=== PATIENT | male | born 1945 | race Caucasian/White ===

== ENCOUNTER 2017-09-13 15:21 | Inpatient (IN) | payer MEDICARE, OTHER ==
[~2017-09-13] VITALS: Ht 175.3 cm; Wt 83.5 kg
--- NOTE | 2017-09-13 15:40 | NUR ---
at bedside assessing patient.
[2017-09-13] MEDS ORDERED: DOCU100C36 PO (15:43)
[2017-09-13] MEDS ORDERED: ACET325T53 PO (15:43)
[2017-09-13] MEDS ORDERED: METF-495 PO (15:43)
[2017-09-13] MEDS ORDERED: ALLO100T PO (15:43)
[2017-09-13] MEDS ORDERED: ATOR80TA PO (15:43)
[2017-09-13] MEDS ORDERED: CHOL10002 PO (15:43)
[2017-09-13] MEDS ORDERED: CARB15DR56 OP (15:43)
[2017-09-13] MEDS ORDERED: HYDR-3972 PO (15:43)
[2017-09-13] MEDS ORDERED: DOXA2TAB PO (15:43)
[2017-09-13] MEDS ORDERED: ASPI-605 PO (15:43)
[2017-09-13] MEDS ORDERED: METO25TA6 PO (15:43)
[2017-09-13] MEDS ORDERED: ALEN70TA45 PO (15:43)
[2017-09-13] MEDS ORDERED: DUTA0.5C15 PO (15:43)
[2017-09-13] MEDS ORDERED: LOSA25TA13 PO (15:43)
[2017-09-13] MEDS ORDERED: CLOP75TA15 PO (15:43)
--- NOTE | 2017-09-13 16:05 | NUR ---
pt down for Ct.
[2017-09-13 16:09] LABS: BASOPHILS % (AUTO) 0.3 % (0.0-2.0); EOSINOPHILS # (AUTO) 0.1 K/uL (0.0-0.7); EOSINOPHILS % (AUTO) 1.4 % (0.0-7.0); HEMATOCRIT 37.2 % (36.7-47.1); HEMOGLOBIN 12.5 g/dL (12.5-16.3); LYMPHOCYTES # (AUTO) 0.7 K/uL (20.0-40.0); LYMPHOCYTES % (AUTO) 12.1 % (20.5-51.5); MEAN CORPUSCULAR HEMOGLOBIN 28.6 uug (23.8-33.4); MEAN CORPUSCULAR HGB CONC 34 g/dL (32.5-36.3); MONOCYTES # (AUTO) 0.6 K/uL (2.0-10.0); MONOCYTES % (AUTO) 11.8 % (0.0-11.0); NEUTROPHILS # (AUTO) 4.1 K/uL (1.8-8.9); NEUTROPHILS % (AUTO) 74.4 % (38.5-71.5); PLATELET COUNT (AUTO) 108 K/uL (152-348); RED BLOOD CELL COUNT(AUTO) 4.37 MIL/uL (4.06-5.63); WHITE BLOOD COUNT (AUTO) 5.5 K/uL (3.6-10.2)
[2017-09-13 16:14] LABS: CARBON DIOXIDE 29 mmol/L (21-32); CHLORIDE 100 mmol/L (98-107); CREATININE 1.4 mg/dL (0.6-1.3); GLUCOSE 153 mg/dL (74-106); POTASSIUM 3.9 mmol/L (3.5-5.1); UREA NITROGEN, BLOOD 20 mg/dL (7-18)
[2017-09-13 16:19] LABS: ALANINE AMINOTRANSFERASE 30 U/L (16-63); ALKALINE PHOSPHATASE 98 U/L (50-136); ASPARTATE AMINOTRANSFERASE 21 U/L (15-37); BILIRUBIN,DIRECT 0.2 mg/dL (0.0-0.2); BILIRUBIN,TOTAL 0.9 mg/dL (0.2-1.0); TOTAL PROTEIN, SERUM 7.2 g/dL (6.4-8.2)
[2017-09-13] MEDS ORDERED: IV NORMAL SALINE 1000 ML BAG IV ONE (16:30)
[2017-09-13] MEDS ORDERED: CEFTRIAXONE 1 G in IV DEXTROSE 5% 50 ML IV ONE (16:30)
[2017-09-13] MEDS ORDERED: AZITHROMYCIN 250 MG TABLET PO ONE (16:30)
--- NOTE | 2017-09-13 16:35 | NUR ---
Lactic acid 2.3 notified to MD by zurdo Muller.
--- NOTE | 2017-09-13 16:36 | NUR ---
patient back from CT.
[2017-09-13] MEDS ORDERED: CEFTRIAXONE 1 G VIAL ONE (17:02)
[2017-09-13] MEDS ORDERED: AZITHROMYCIN 250 MG TABLET ONE (17:03)
--- NOTE | 2017-09-13 17:40 | NUR ---
1st. call to [facility] on behalf of Dr. Kumar for admission.
--- NOTE | 2017-09-13 19:06 | NUR ---
report given to Damián
[2017-09-13 19:46] LABS: *BILIRUBIN,URIN NEGATIVE (NEGATIVE); *BLOOD, URINE NEGATIVE (NEGATIVE); *CLARITY,URINE CLEAR (CLEAR); *COLOR,URINE LIGHT YELLOW (YELLOW); *KETONES,URINE NEGATIVE (NEGATIVE); *PROTEIN,URINE NEGATIVE (NEGATIVE); *UROBILINOGEN,URINE 0.2 E.U./dl (NORMAL); LEUKOCYTE ESTERASE ,URINE NEGATIVE (NEGATIVE); NITRITE, URINE NEGATIVE (NEGATIVE); PH,URINE 5.5 (5.0-8.0); UGLUCOSE NEGATIVE (NEGATIVE)
[2017-09-13 19:54] LABS: SQUAMOUS EPITHELIAL CELL,UR FEW /HPF (NONE SEEN); WBC,URINE 0-3 /HPF (0-3)
--- NOTE | 2017-09-13 20:21 | NUR ---
Called report to Keke.
[2017-09-13] MEDS ORDERED: ACETAMINOPHEN 325 MG TABLET PO PRN ×2 (21:15→22:00)
--- NOTE | 2017-09-13 21:30 | NUR ---
PT RECEIVED IN BED, AWAKE. ORIENTED TO ROOM. A/OX4. ABLE TO MAKE NEEDS KNOWN. V/S STABLE. IN NO ACUTE DISTRESS. NO C/O PAIN AT THIS TIME. IV INTACT AND PATENT. ON RA, TOLERATING WELL. AFEBRILE. 92 SINUS RHYTHM ON THE TELE MONITOR. SAFETY MEASURES IMPLEMENTED. CALL LIGHT WITHIN REACH.
[2017-09-13] MEDS: CEFTRIAXONE 1 G in IV DEXTROSE 5% 50 ML IV SCH (22:00)
[2017-09-13] MEDS ORDERED: ALENDRONATE SODIUM 70 MG TABLET PO SCH (22:00)
[2017-09-13] MEDS: AZITHROMYCIN IV 500 MG in IV DEXTROSE 5% 250 ML IV SCH (22:00)
[2017-09-13] MEDS: DOCUSATE SODIUM 100 MG CAPSULE PO SCH (22:00)
[2017-09-13] MEDS ORDERED: CARBOXYMETHYLCELLULOSE SODIUM OP PRN (22:00)
[2017-09-13] MEDS ORDERED: HYDROCODONE/APAP 5-325MG TABLET PO PRN (22:15)
[2017-09-13] MEDS ORDERED: ALBUTEROL SULFATE 2.5 MG/3 ML NEBU NEB PRN (22:15)
[2017-09-13] MEDS ORDERED: ONDANSETRON 4 MG/2 ML VIAL IV PRN (22:15)
[2017-09-13] MEDS ORDERED: TEMAZEPAM 15 MG CAPSULE PO PRN (22:15)
[2017-09-13] MEDS ORDERED: IV NS 1000 ML 1,000 ML IV PRN (22:15)
[2017-09-13 22:24] VITALS: BP 153/72
[2017-09-13] MEDS ORDERED: AZITHROMYCIN 500 MG VIAL IV ONE (23:21)
[2017-09-14 00:53] VITALS: BP 126/58
[2017-09-14 04:00] VITALS: BP 149/76
--- NOTE | 2017-09-14 06:40 | NUR ---
END OF SHIFT NOTES. PT SLEPT INTERMITTENTLY THROUGHOUT SHIFT. IN STABLE CONDITION. IVF INFUSING. ON RA TOLERATING WELL. AFEBRILE THROUGHOUT SHIFT. DROPLET PRECAUTIONS PLACED. ALL NEEDS ATTENDED. SAFETY MAINTAINED. CALL LIGHT WITHIN REACH.
[2017-09-14] MEDS: PANTOPRAZOLE SODIUM 40 MG TABLET.DR PO SCH (06:49)
--- NOTE | 2017-09-14 06:49 | NUR ---
NON-ADMIN PROTONIX. NEW PT
[2017-09-14 07:14] LABS: ALANINE AMINOTRANSFERASE 29 U/L (16-63); ALKALINE PHOSPHATASE 87 U/L (50-136); ASPARTATE AMINOTRANSFERASE 22 U/L (15-37); BILIRUBIN,TOTAL 0.4 mg/dL (0.2-1.0); CARBON DIOXIDE 28 mmol/L (21-32); CHLORIDE 111 mmol/L (98-107); CHOLESTEROL 88 mg/dL (<200); CREATININE 1.1 mg/dL (0.6-1.3); GLUCOSE 232 mg/dL (74-106); HDL CHOLESTEROL 33 mg/dL (40-60); MAGNESIUM 1.7 mg/dL (1.8-2.4); PHOSPHOROUS 4.1 mg/dL (2.5-4.9); TOTAL PROTEIN, SERUM 6.3 g/dL (6.4-8.2); TRIGLYCERIDES 95 MG/DL (30-150); UREA NITROGEN, BLOOD 18 mg/dL (7-18)
[2017-09-14 07:28] LABS: BASOPHILS % (AUTO) 0.3 % (0.0-2.0); EOSINOPHILS # (AUTO) 0.1 K/uL (0.0-0.7); EOSINOPHILS % (AUTO) 2.5 % (0.0-7.0); HEMOGLOBIN 11.9 g/dL (12.5-16.3); LYMPHOCYTES # (AUTO) 0.5 K/uL (20.0-40.0); LYMPHOCYTES % (AUTO) 12.5 % (20.5-51.5); MEAN CORPUSCULAR HGB CONC 34 g/dL (32.5-36.3); MEAN CORPUSCULAR VOLUME 85.3 fL (73.0-96.2); MONOCYTES # (AUTO) 0.4 K/uL (2.0-10.0); MONOCYTES % (AUTO) 10.9 % (0.0-11.0); NEUTROPHILS % (AUTO) 73.8 % (38.5-71.5); PLATELET COUNT (AUTO) 103 K/uL (152-348); RED BLOOD CELL COUNT(AUTO) 4.11 MIL/uL (4.06-5.63); WHITE BLOOD COUNT (AUTO) 4.1 K/uL (3.6-10.2)
[2017-09-14 07:40] LABS: IRON, SERUM 19 ug/dL (50-175)
[2017-09-14] MEDS ORDERED: CARBOXYMETHYLCELLULOSE SODIUM DROPERETTE EACHEYE PRN (07:45)
[2017-09-14] MEDS: ASPIRIN EC 81 MG TABLET.DR PO SCH (08:19)
[2017-09-14] MEDS: ALLOPURINOL 100 MG TABLET PO SCH (08:19)
[2017-09-14] MEDS: CHOLECALCIFEROL 1,000 UNIT TABLET PO SCH (08:20)
[2017-09-14] MEDS: DUTASTERIDE 0.5 MG CAPSULE PO SCH (08:20)
[2017-09-14] MEDS: METOPROLOL TARTRATE 25 MG TABLET PO SCH ×2 (08:26→20:33)
[2017-09-14] MEDS: DOXAZOSIN 2 MG TABLET PO SCH (08:26)
[2017-09-14 09:15] LABS: THYROID STIMULATING HORMONE 1.109 mIU/mL (0.358-3.740)
[2017-09-14] MEDS: CLOPIDOGREL 75 MG TABLET PO SCH (09:50)
[2017-09-14] MEDS: DOCUSATE SODIUM 100 MG CAPSULE PO SCH ×2 (10:00→21:11)
--- NOTE | 2017-09-14 10:29 | NUR ---
PT REFUSED COLACE. PT STATES, " I'M NOT HAVING TROUBLE GOING TO THE BATHROOM AT ALL, I'LL PASS THANKS"
[2017-09-14 11:02] VITALS: BP 125/63
[2017-09-14] MEDS: MAGNESIUM SULFATE/D5W 100 ML IV SCH ×2 (15:00→16:14)
[2017-09-14 15:02] VITALS: BP 132/79
--- NOTE | 2017-09-14 18:31 | NUR ---
PT OBSERVED IN ROOM ON LAPTOP. PT IS CALM, COOPERATIVE, NO SIGNS OF RESPIRATORY DISTRESS. VITALS STABLE. PT HAD HIS VISIT TODAY. PT WAS GIVEN TWO BAGS OF MAG. PT BED AT LOWEST LOCKED POSITION. FREE FROM INJURY AT THIS TIME
[2017-09-14] MEDS ORDERED: IV 1/2NS 1000 ML 1,000 ML IV PRN (19:30)
--- NOTE | 2017-09-14 19:30 | NUR ---
PT RECEIVED IN BED, AWAKE. A/OX4. ABLE TO MAKE NEEDS KNOWN. V/S STABLE. IN NO ACUTE DISTRESS. PT C/O HEADACHE AT THIS TIME. TYLENOL ADMINISTERED ORDERED. IVF INFUSING. DROPLET PRECAUTION IN PLACE. SAFETY MEASURES IMPLEMENTED. CALL LIGHT WITHIN REACH.
[2017-09-14 20:00] VITALS: BP 151/76
[2017-09-14] MEDS ORDERED: ATORVASTATIN 40 MG TABLET PO SCH (21:00)
[2017-09-14] MEDS ORDERED: Medication Not On Formulary EA (Atorvastatin Calcium (Lipitor) 80 MG) PO SCH (21:00)
[2017-09-14] MEDS: CEFTRIAXONE 1 G in IV DEXTROSE 5% 50 ML IV SCH (21:10)
[2017-09-14] MEDS: AZITHROMYCIN IV 500 MG in IV DEXTROSE 5% 250 ML IV SCH (21:55)
[2017-09-15 04:00] VITALS: BP 152/74
--- NOTE | 2017-09-15 05:50 | NUR ---
END OF SHIFT NOTES. PT SLEPT WELL THROUGHOUT SHIFT. IN STABLE CONDITION. AFEBRILE. HEADACHE CEASED. IV ABX INFUSED. IVF INFUSING. DROPLET PRECAUTIONS MAINTAINED. ALL NEEDS ATTENDED. SAFETY MAINTAINED. CALL LIGHT WITHIN REACH.
[2017-09-15] MEDS ORDERED: FOSAMAX 35 MG PO SCH (06:00)
[2017-09-15] MEDS: PANTOPRAZOLE SODIUM 40 MG TABLET.DR PO SCH (06:14)
[2017-09-15 06:46] LABS: CARBON DIOXIDE 29 mmol/L (21-32); CHLORIDE 104 mmol/L (98-107); CREATININE 1.1 mg/dL (0.6-1.3); GLUCOSE 135 mg/dL (74-106); POTASSIUM 3.8 mmol/L (3.5-5.1); UREA NITROGEN, BLOOD 17 mg/dL (7-18)
[2017-09-15] MEDS: DUTASTERIDE 0.5 MG CAPSULE PO SCH ×2 (09:00→09:49)
[2017-09-15] MEDS: DOXAZOSIN 2 MG TABLET PO SCH (09:48)
[2017-09-15] MEDS: ALLOPURINOL 100 MG TABLET PO SCH (09:48)
[2017-09-15] MEDS: ASPIRIN EC 81 MG TABLET.DR PO SCH (09:48)
[2017-09-15] MEDS: DOCUSATE SODIUM 100 MG CAPSULE PO SCH ×2 (09:48→10:00)
[2017-09-15] MEDS: METOPROLOL TARTRATE 25 MG TABLET PO SCH (09:49)
[2017-09-15] MEDS: CHOLECALCIFEROL 1,000 UNIT TABLET PO SCH (09:49)
[2017-09-15] MEDS: CLOPIDOGREL 75 MG TABLET PO SCH (09:49)
[2017-09-15 11:18] VITALS: BP 134/71
[2017-09-15 11:20] VITALS: BP 142/70
[2017-09-15 11:22] VITALS: BP 145/72
[2017-09-15] MEDS ORDERED: AZIT250T PO (12:37)
[2017-09-15] MEDS ORDERED: AMOX875T2 PO (12:37)
--- NOTE | 2017-09-15 14:30 | NUR ---
Discharged patient to home, picked up by friend Federico Hoffmann. Discharge instructions provided to patient with verbalized understanding. Discharge papers signed by and given to the patient. All belongings including medications brought from home and prescription given to the patient. Patient remains alert, verbally responsive, not in any form of acute distress. No complain or any pain or discomfort. Assisted patient to parking lot by [employer] via wheelchair.
[2017-09-15 15:40] VITALS: BP 151/61
[2017-09-20] MEDS ORDERED: ALENDRONATE SODIUM 70 MG TABLET PO SCH (22:00)
== END 2017-09-15 17:00 | disposition home or self-care (01) | DRG 73 ==
LOC: ER 15:21 → TELE 21:01 → MED 09-14 18:35
PROVIDERS: ADMIT Internal Medicine; ATTEND Nurse Practitioner Acute Care
DX: G90.8 Other disorders of autonomic nervous system (principal); N17.0 Acute kidney failure with tubular necrosis; E87.2 Acidosis; D69.6 Thrombocytopenia, unspecified; E83.42 Hypomagnesemia; M48.02 Spinal stenosis, cervical region; J10.01 Influenza due to other identified influenza virus with the same other identified influenza virus pneumonia; J98.11 Atelectasis; E86.0 Dehydration; I25.2 Old myocardial infarction; E78.5 Hyperlipidemia, unspecified; Z79.02 Long term (current) use of antithrombotics/antiplatelets; Z88.1 Allergy status to other antibiotic agents; Z88.2 Allergy status to sulfonamides; Z79.82 Long term (current) use of aspirin; Z79.84 Long term (current) use of oral hypoglycemic drugs; Z95.5 Presence of coronary angioplasty implant and graft; Z83.3 Family history of diabetes mellitus; Z82.49 Family history of ischemic heart disease and other diseases of the circulatory system; N40.0 Benign prostatic hyperplasia without lower urinary tract symptoms; I25.10 Atherosclerotic heart disease of native coronary artery without angina pectoris; M10.9 Gout, unspecified; Z87.891 Personal history of nicotine dependence; M25.78 Osteophyte, vertebrae; I67.2 Cerebral atherosclerosis; I10 Essential (primary) hypertension; E11.9 Type 2 diabetes mellitus without complications
CPT/HCPCS: 36415; 70030-TC; 70450; 71045; 72125; 83550; 83605; 83735; 84100; 84443; 85025; 85730; 87040; 87086; 87400; 93005; 93307; 93880; A4663; J0456; J0696; J3475; J3490; J7030; J7040; J7060; Q0144